=== PATIENT | female | born 1985 | race Two or more races ===

== ENCOUNTER 2017-01-17 13:20 | Emergency (ER) | payer SELFPAY ==
[~2017-01-17] VITALS: Ht 167.6 cm; Wt 70.0 kg
[2017-01-17 15:45] LABS: CLARITY URINE TURBID (CLEAR); COLOR URINE ORANGE (YELLOW); GLUCOSE URINE NEGATIVE (NEGATIVE); KETONES URINE NEGATIVE (NEGATIVE); LEUKOCYTE ESTERASE URINE TRACE (NEGATIVE); NITRITE URINE NEGATIVE (NEGATIVE); OCCULT BLOOD URINE 3+ (NEGATIVE); PH URINE 8.5 (4.5-8.0); PROTEIN URINE TRACE (NEGATIVE); SPECIFIC GRAVITY URINE 1.018 (1.005-1.030); UROBILINOGEN URINE 0.2 E.U./dL (0.2-1.0)
[2017-01-17 15:47] LABS: EOSINOPHILS % 2.4 % (0.0-5.0); LYMPHOCYTES % 30.6 % (20.0-50.0); MEAN CORPUSCULAR VOLUME 90.5 fL (81.0-99.0); MEAN PLATELET VOLUME 8.1 fl (7.4-10.4); MONOCYTES % 9.1 % (2.0-8.0); NEUTROPHILS % 56.9 % (40.0-76.0); PLATELET 310 x1000/uL (130-400)
[2017-01-17 15:49] LABS: CHLORIDE 105 mEq/L (98-107)
[2017-01-17 15:50] LABS: PROTHROMBIN TIME 10.2 sec
[2017-01-17 15:59] LABS: CARBON DIOXIDE 29 mEq/L (21-32)
[2017-01-17 16:00] LABS: B-HCG QUANTITATIVE 9 mIU/mL (<3)
[2017-01-17 18:24] VITALS: BP 112/72
== END 2017-01-17 18:26 | disposition home or self-care (01) ==
LOC: ER 15:37
DX: O20.0 Threatened abortion (principal); Z3A.08 8 weeks gestation of pregnancy; R10.9 Unspecified abdominal pain; F32.9 Major depressive disorder, single episode, unspecified; Z98.890 Other specified postprocedural states
CPT/HCPCS: 36415; 76801; 80053; 81001; 83690; 84702; 85025; 85610; 86850; 86900; 99285